=== PATIENT | male | born 1975 | race Two or more races ===

== ENCOUNTER 2021-11-06 17:23 | Emergency (ER) | payer SELFPAY ==
[~2021-11-06] VITALS: Ht 177.8 cm; Wt 71.7 kg
[2021-11-06 19:21] VITALS: BP 137/95
[2021-11-06] MEDS ORDERED: ALPR0.5T PO (20:56)
[2021-11-06] MEDS ORDERED: ALPRAZOLAM 0.5 MG TABLET PO ONE (21:00)
[2021-11-06] MEDS ORDERED: ALPRAZOLAM 0.5 MG TABLET ONE (21:03)
--- NOTE | 2021-11-06 21:05 | NUR ---
Patient discharged to home in stable condition. Written and verbal after care instructions given. Patient verbalizes understanding of instruction.
== END 2021-11-06 21:06 | disposition home or self-care (01) ==
LOC: ER 17:32
DX: S30.0XXA Contusion of lower back and pelvis, initial encounter (principal); F10.239 Alcohol dependence with withdrawal, unspecified; W19.XXXA Unspecified fall, initial encounter; Y93.89 Activity, other specified; Y92.89 Other specified places as the place of occurrence of the external cause; Y99.8 Other external cause status; Y90.9 Presence of alcohol in blood, level not specified